=== PATIENT | male | born 1990 | race Caucasian/White ===

== ENCOUNTER 2020-11-23 12:21 | Outpatient (CLI) | payer OTHER, SELFPAY ==
--- NOTE | 2020-11-23 17:37 | WPDPFTINT ---
PFT Procedure Performed PFT Procedure Performed Spirometry with Pre/Post Bronchodilator Plethysmography (Lung Vol) Diffusing Cap (DLCO) PFT Interpretation This is a pulmonary function test with pre and post-bronchodilator spirometry, plethysmography and diffusing capacity. The test was performed and results interpreted in accordance with the 2019 and 2005 ATS/ERS Task Force guidelines respectively using the Global Lung Function Initiative-2012 reference equations. Patient demonstrated good effort and cooperation. Reproducibility criteria were met. The quality of the pre bronchodilator spirometry maneuver was Grade A and post bronchodilator spirometry maneuver was Grade A. Findings: Spirometry: There is decreased maximal expiratory airflow at all lung volumes with concave expiratory flow tracing. The pre bronchodilator FVC is 5.98 L, 110% predicted. the pre bronchodilator FEV1 is 3.79 L, 85% predicted. The FEV1: FVC ratio is 63%. The post bronchodilator FVC is 6.09 L, representing a 2% increase. The post bronchodilator FEV1 is 4.18 L, representing a 10% increase. Plethysmography: The total lung capacity is 7.38 L, 107% predicted. The functional residual capacity is 3.00 L, 88% predicted. The residual volume is 1.40 L, 84% predicted. Diffusing capacity: The absolute diffusion capacity is 35.0, 101% predicted. The diffusing capacity corrected for alveolar volume is 5.08, 99% predicted. Impression: There is a mild obstructive abnormality with a normal FEV1 and without significant improvement after inhaling a single dose of albuterol. The lung volumes are normal. The diffusing capacity is normal. There are no prior studies for comparison
== END 2020-11-23 12:22 | disposition home or self-care (01) ==
PROVIDERS: PCP Family Medicine; Visit Provider Nurse Practitioner
DX: J45.909 Unspecified asthma, uncomplicated (principal); R94.2 Abnormal results of pulmonary function studies
CPT/HCPCS: 94060; 94726; 94729

== ENCOUNTER 2021-01-16 13:06 | Outpatient (CLI) | payer OTHER, SELFPAY ==
--- NOTE | 2021-01-18 12:31 | P.METCHAL_ITS ---
Methacholine Procedure Perform Procedure Performed Methacholine Challenge Methacholine Challenge This is a methacholine challenge test. The test was performed and interpreted in accordance with the 1999 [place] [employer] guidelines. The test was performed with increasing doses of nebulized methacholine using a 2 minute tidal breathing protocol. The best post-methacholine FEV1 values were used to calculate the change from the post diluent FEV1. Findings: Baseline FEV1 4.21 L, 95% predicted. Post diluent FEV1 4.20 L Post 0.025 mg/ml methacholine FEV1 4.10 L, decreased 2% Post 0.25 mg/mL methacholine FEV1 4.12 L, decreased 2% Post 2.5 mg/mL methacholine FEV1 3.87 L, decreased 8% Post 10 mg/mL methacholine FEV1 3.65 L, decreased 13% Post 25 mg/mL methacholine FEV1 3.59 L, decreased 15% Post albuterol nebulization FEV1 3.90 L Impression: The PC20 is greater than 25 mg/ml which is categorized as normal bronchial responsiveness. There are no prior methacholine challenge studies for comparison
== END 2021-01-16 13:07 | disposition home or self-care (01) ==
PROVIDERS: PCP Family Medicine; Visit Provider Nurse Practitioner
DX: J45.909 Unspecified asthma, uncomplicated (principal)
CPT/HCPCS: 94070; J7674